=== PATIENT | female | born 1950 | race Two or more races ===

== ENCOUNTER 2018-10-09 10:09 | Emergency (ER) | payer SELFPAY ==
[~2018-10-09] VITALS: Ht 152.4 cm; Wt 49.9 kg
[2018-10-09] MEDS ORDERED: MECLIZINE HCL 12.5 MG TABLET. PO ONE (10:30)
[2018-10-09] MEDS ORDERED: amLODIPine BESYLATE 5 MG TABLET PO ONE (10:30)
[2018-10-09 10:41] LABS: BILIRUBIN,URINE NEGATIVE (NEG); CLARITY,URINE CLEAR; COLOR,URINE YELLOW; NITRITE,URINE NEGATIVE (NEG); PH,URINE 8.5; PROTEIN,URINE NEGATIVE (NEG-TRACE); UROBILINOGEN,URINE 0.2 mg/dL (0.2 mg/dL)
[2018-10-09] MEDS ORDERED: ONDANSETRON ODT 4 MG TAB.RAPDIS. PO ONE (10:45)
--- NOTE | 2018-10-09 10:48 | EKG ---
[facility] [address] [place] [address] Test Date: 2018-10-09 Test Time: 10:40:53 Pat Name: ROSA ELENA SANTACRUZ Department: Room: Gender: F Injection Molding Supervisor: : 1950 Requested By: ANA ALVARADO Order Number: [id number] Reading MD: Fransico Oquendo MD Measurements Intervals [place] Rate: 52 P: 49 ME: 150 QRS: 51 QRSD: 124 T: 18 QT: 412 QTc: 388 Interpretive Statements SINUS RHYTHM RBBB NON-SPECIFIC ST/T CHANGES Electronically Signed On 10-11-2018 10:39:51 CARE MANAGEMENT SPECIALIST by Fransico Oquendo MD
--- NOTE | 2018-10-09 10:53 | PHYS DOC ---
Past Medical History Past Medical History: Arthritis, Diabetes-Type II, Hypertension Past Surgical History: No Surgical History Alcohol Use: None Drug Use: None Adult General Chief Complaint Chief Complaint: NAUSEA/VOMITING/DIARRHA HPI HPI Patient is a 67 year old F brought in by family with chief complaint elevated blood pressure she was feeling dizzy and lightheaded and had a headache for the last couple of days worse today gradual onset slowly worsening diffuse otherwise nonradiating no other exacerbating factors she was worried her blood pressure was high in addition she felt nauseous 2. Denied any chest pain at all. He felt just kind of generally weak this morning so he decided to bring her in for evaluation. Review of Systems Review of Systems Constitutional: Denies fever or chills [] Eyes: Denies change in visual acuity, redness, or eye pain [] HENT: Denies nasal congestion or sore throat [] Respiratory: Denies cough or shortness of breath [] Cardiovascular: No additional information not addressed in HPI [] GI: : Denies dysuria or hematuria [] Musculoskeletal: Integument: Denies rash or skin lesions [] Neurologic: Denies focal weakness or sensory changes [] All other systems were reviewed and found to be within normal limits, except as documented in this note. Current Medications Current Medications Current Medications Medications (Trade) Dose Ordered Sig/Emilee Start Time Stop Time Status Last Admin Dose Admin Amlodipine Besylate (Norvasc) 10 mg 1X ONCE 10/09/18 10:30 10/09/18 10:57 DC 10/09/18 11:06 10 MG Meclizine HCl (Antivert) 25 mg 1X ONCE 10/09/18 10:30 10/09/18 10:57 DC 10/09/18 11:04 25 MG Ondansetron HCl (Zofran Odt) 4 mg 1X ONCE 10/09/18 10:45 10/09/18 10:57 DC 10/09/18 11:03 4 MG Allergies Allergies Allergies Coded Allergies Type Severity Reaction Last Updated Verified No Known Drug Allergies 10/09/18 No Physical Exam Physical Exam Constitutional: Well developed, well nourished, no acute distress, non-toxic appearance. [] HENT: Normocephalic, atraumatic, bilateral external ears normal, oropharynx moist, no oral exudates, nose normal. [] Eyes: PERRLA, EOMI, conjunctiva normal, no discharge. [] Neck: Normal range of motion, no tenderness, supple, no stridor. [] Cardiovascular:Heart rate regular rhythm, no murmur [] Lungs & Thorax: Bilateral breath sounds clear to auscultation [] Abdomen: Bowel sounds normal, soft, no tenderness, no masses, no pulsatile masses. [] Skin: Warm, dry, no erythema, no rash. [] Extremities: No tenderness, no cyanosis, no clubbing, ROM intact, no edema. [] Neurologic: Alert and oriented X 3, normal motor function, normal sensory function, no focal deficits noted. []Rmyumi-ebql-ogfggy intact cranial nerves intact no signs of any unilateral dysmetria Psychologic: Affect normal, judgement normal, mood normal. [] Current Patient Data Vital Signs Vital Signs Date Time Temp Pulse Resp B/P (MAP) Pulse Ox O2 Delivery O2 Flow Rate FiO2 10/09/18 11:06 59 171/72 10/09/18 10:34 97.8 16 97 Room Air 97.8 Lab Values Laboratory Tests Test 10/09/18 10:20 10/09/18 10:51 Urine Collection Type Unknown Urine Color Yellow Urine Clarity Clear Urine pH 8.5 Urine Specific [place] 1.015 Urine Protein Negative mg/dL (NEG-TRACE) Urine Glucose (UA) Negative mg/dL (NEG) Urine Ketones (Stick) Trace mg/dL (NEG) Urine Blood Negative (NEG) Urine Nitrite Negative (NEG) Urine Bilirubin Negative (NEG) Urine Urobilinogen Dipstick 0.2 mg/dL (0.2 mg/dL) Urine Leukocyte Esterase Small (NEG) Urine RBC 0 /HPF (0-2) Urine WBC 1-4 /HPF (0-4) Urine Squamous Epithelial Cells Mod /LPF Urine Renal Epithelial Cells Occ /LPF Urine Bacteria 0 /HPF (0-FEW) White Blood Count 5.0 x10^3/uL (4.0-11.0) Red Blood Count 4.78 x10^6/uL (3.50-5.40) Hemoglobin 12.8 g/dL (12.0-15.5) Hematocrit 38.3 % (36.0-47.0) Mean Corpuscular Volume 80 fL (79-100) Mean Corpuscular Hemoglobin 27 pg (25-35) Mean Corpuscular Hemoglobin Concent 33 g/dL (31-37) Red Cell Distribution Width 14.1 % (11.5-14.5) Platelet Count 73 x10^3/uL (140-400) L Neutrophils (%) (Auto) 65 % (31-73) Lymphocytes (%) (Auto) 24 % (24-48) Monocytes (%) (Auto) 8 % (0-9) Eosinophils (%) (Auto) 2 % (0-3) Basophils (%) (Auto) 1 % (0-3) Neutrophils # (Auto) 3.3 x10^3uL (1.8-7.7) Lymphocytes # (Auto) 1.2 x10^3/uL (1.0-4.8) Monocytes # (Auto) 0.4 x10^3/uL (0.0-1.1) Eosinophils # (Auto) 0.1 x10^3/uL (0.0-0.7) Basophils # (Auto) 0.0 x10^3/uL (0.0-0.2) Sodium Level 136 mmol/L (136-145) Potassium Level 3.9 mmol/L (3.5-5.1) Chloride Level 103 mmol/L (98-107) Carbon Dioxide Level 28 mmol/L (21-32) Anion Gap 5 (6-14) L Blood Urea Nitrogen 14 mg/dL (7-20) Creatinine 0.7 mg/dL (0.6-1.0) Estimated GFR (Cockcroft-Gault) 83.2 BUN/Creatinine Ratio 20 (6-20) Glucose Level 158 mg/dL (70-99) H Calcium Level 9.1 mg/dL (8.5-10.1) Total Bilirubin 0.3 mg/dL (0.2-1.0) Aspartate Amino Transferase (AST) 13 U/L (15-37) L Alanine Aminotransferase (ALT) 14 U/L (14-59) Alkaline Phosphatase 65 U/L (46-116) Troponin I Quantitative < 0.017 ng/mL (0.000-0.055) Total Protein 7.3 g/dL (6.4-8.2) Albumin 3.5 g/dL (3.4-5.0) Albumin/Globulin Ratio 0.9 (1.0-1.7) L Laboratory Tests 10/09/18 10:51 Laboratory Tests 10/09/18 10:51 EKG EKG []EKG shows a normal sinus rhythm rate of 53) branch block pattern no acute ST elevation was noted interpreted by me the time of encounter. Radiology/Procedures Radiology/Procedures [] Impressions: hrough the vertex without IV contrast. Findings: The ventricles and sulci are normal for the patient's age. No mass-effect, midline shift, hemorrhage, extra-axial fluid collection, or obvious acute infarction is identified. Basilar cisterns are patent. Bone windows demonstrate no acute calvarial abnormality. The visualized paranasal sinuses are clear. Mastoid air cells are well aerated. The presence of a ring artifact was called to the technologist. IMPRESSION: No acute intracranial abnormality. Electronically signed by: Heladio Huston MD (10/09/2018 11:54 AM) [facility] DICTATED and SIGNED BY: HELADIO HUSTON MD DATE: 10/09/18 1144 Course & Med Decision Making Course & Med Decision Making Pertinent Labs and Imaging studies reviewed. (See chart for details) []59-year-old female who presented with a chief complaint of some nausea dizziness, generalized weakness throughout the last couple of days worse this morning blood pressure was elevated we gave meclizine was given amlodipine the blood pressure came down the workup is negative she feels much better she'll be discharged home at this time. She knows to get follow-up for her blood pressure within 1-2 weeks. Discussed this with the family who are Panamanian speaking and understand quite well. Dragon Disclaimer Dragon Disclaimer This electronic medical record was generated, in whole or in part, using a voice recognition dictation system. Departure Departure Impression: Primary Impression: Dizziness Additional Impression: Elevated blood pressure reading Disposition: HOME, SELF-CARE Condition: STABLE Referrals: NON,STAFF (PCP) Scripts Meclizine Hcl (MECLIZINE HCL) 25 Mg Tablet 25 MG PO PRN TID PRN for DIZZINESS, #15 dizziness Prov: ANA ALVARADO MD 10/09/18 Problem Qualifiers ANA ALVARADO MD Oct 09, 2018 10:53
[2018-10-09 10:55] LABS: SQUAMOUS EPITHELIAL CELL,UR MOD /LPF
[2018-10-09 10:56] LABS: BACTERIA,URINE 0 /HPF (0-FEW); RBC,URINE 0 /HPF (0-2)
[2018-10-09 11:04] LABS: BASO % 1 % (0-3); EOS # 0.1 x10^3/uL (0.0-0.7); EOS % 2 % (0-3); HEMATOCRIT 38.3 % (36.0-47.0); HEMOGLOBIN 12.8 g/dL (12.0-15.5); LYMPH # 1.2 x10^3/uL (1.0-4.8); LYMPH % 24 % (24-48); MEAN CORPUSCULAR HEMOGLOBIN 27 pg (25-35); MEAN CORPUSCULAR HGB CONC 33 g/dL (31-37); MEAN CORPUSCULAR VOLUME 80 fL (79-100); MONO # 0.4 x10^3/uL (0.0-1.1); MONO % 8 % (0-9); NEUT # 3.3 x10^3uL (1.8-7.7); NEUT % 65 % (31-73); PLATELET COUNT 73 x10^3/uL (140-400); RED BLOOD COUNT 4.78 x10^6/uL (3.50-5.40); RED CELL DISTRIBUTION WIDTH 14.1 % (11.5-14.5)
[2018-10-09 11:18] LABS: CALCIUM 9.1 mg/dL (8.5-10.1); CREATININE 0.7 mg/dL (0.6-1.0); GFR 83.2; POTASSIUM 3.9 mmol/L (3.5-5.1)
[2018-10-09 11:24] LABS: ALBUMIN 3.5 g/dL (3.4-5.0); ALBUMIN/GLOBULIN RATIO 0.9 (1.0-1.7); TOTAL BILIRUBIN 0.3 mg/dL (0.2-1.0); TOTAL PROTEIN 7.3 g/dL (6.4-8.2)
--- NOTE | 2018-10-09 11:58 | RAD ---
RS Compliance Statement: One or more of the following individualized dose reduction techniques were utilized for this examination: 1. Automated exposure control 2. Adjustment of the mA and/or kV according to patient size 3. Use of iterative reconstruction technique CT HEAD WITHOUT CONTRAST History: HEADACHE HTN TODAY, R/O BLEED. GENERALIZED WEAKNESS Comparison: CT head without contrast, October 28, 2004. Procedure: Axial images are obtained of the head from the skull base through the vertex without IV contrast. Findings: The ventricles and sulci are normal for the patient's age. No mass-effect, midline shift, hemorrhage, extra-axial fluid collection, or obvious acute infarction is identified. Basilar cisterns are patent. Bone windows demonstrate no acute calvarial abnormality. The visualized paranasal sinuses are clear. Mastoid air cells are well aerated. The presence of a ring artifact was called to the technologist. IMPRESSION: No acute intracranial abnormality. Electronically signed by: Heladio Cain MD (10/09/2018 11:54 AM) [facility]
[2018-10-09] MEDS ORDERED: MECL25TA3 PO (12:49)
[2018-10-09 13:15] VITALS: BP 130/62
== END 2018-10-09 13:20 | disposition home or self-care (01) ==
LOC: ER 10:09
DX: I10 Essential (primary) hypertension (principal); R42 Dizziness and giddiness; M19.90 Unspecified osteoarthritis, unspecified site; E11.9 Type 2 diabetes mellitus without complications; R53.1 Weakness
CPT/HCPCS: 36415; 70450; 80053; 81001; 84484; 85025; 87086; 93005; 99285; J8597; Q0162